=== PATIENT | female | born 1955 | race Caucasian/White ===

== ENCOUNTER 2019-05-16 12:10 | Emergency (ER) | payer OTHER ==
[2019-05-16 12:24] VITALS: TEMP 98.2; BMI 45.1
--- NOTE | 2019-05-16 13:01 | PDOC ---
History of Present Illness - General Chief Complaint: Pain Stated Complaint: BILATERAL LEG PAIN, RIGHT > LEFT Time Seen by Provider: 05/16/19 12:31 - History of Present Illness Initial Comments: The pt is a 63F w/ no reported PMH who presents for evaluation of 1 week of leg swelling. She states she had a mechanical fall last week. Since then she has continued to ambulate but has noticed swelling in her legs (that is mildly worse than usual) and is concerned she may have a blood clot in her legs. She denies history of DVT/PE, chest pain, SOB, fevers, change in sensation, or weakness. Denies recent long travel, surgery, immobility, OCP, malignancy. 05/16/19 13:01 Past History - Past Medical History Allergies/Adverse Reactions: Allergies Allergy/AdvReac Type Severity Reaction Status Date / Time Penicillins Allergy Verified 05/16/19 12:19 Home Medications: Ambulatory Orders Cyanocobalamin [Vitamin B12 -] 1,000 mcg PO ASDIR 05/16/19 COPD: No - Surgical History Cholecystectomy: Yes - Psycho Social/Smoking Cessation Hx Smoking History: Never smoked Have you smoked in the past 12 months: No Information on smoking cessation initiated: No Hx Alcohol Use: No Review of Systems - Review of Systems Able to Perform ROS?: Yes Comments:: GENERAL/CONSTITUTIONAL: No fever or chills. No weakness HEAD, EYES, EARS, NOSE AND THROAT: No change in vision. No change in hearing. No sore throat CARDIOVASCULAR: No chest pain or shortness of breath RESPIRATORY: Denies cough, hemoptysis GASTROINTESTINAL: No nausea, vomiting, diarrhea or constipation GENITOURINARY: No dysuria, frequency, or change in urination MUSCULOSKELETAL: per HPI SKIN: No rash NEUROLOGIC: No headache, vertigo, loss of consciousness, or change in strength/ sensation ENDOCRINE: No increased thirst. No abnormal weight change HEMATOLOGIC/LYMPHATIC: No anemia, easy bleeding, or history of blood clots ALLERGIC/IMMUNOLOGIC: No hives or skin allergy 05/16/19 12:48 Is the patient limited Vietnamese proficient: No *Physical Exam - Vital Signs Last Vital Signs Temp Pulse Resp BP Pulse Ox 98.2 F 80 16 169/94 95 05/16/19 12:10 05/16/19 12:10 05/16/19 12:10 05/16/19 12:10 05/16/19 12:10 - Physical Exam GENERAL: Awake, alert, and oriented to person/place/time, in no acute distress HEAD: No signs of trauma, normocephalic, atraumatic EYES: PERRLA, EOMI, sclera anicteric, conjunctiva clear ENT: Hearing grossly normal, nares patent, oropharynx clear without exudates. Moist mucosa LUNGS: No distress, speaks in full sentences, clear to auscultation bilaterally HEART: Regular rate and rhythm, normal S1 and S2, no murmurs appreciated, peripheral pulses normal and equal bilaterally ABDOMEN: Soft, nontender, normoactive bowel sounds. No guarding, no rebound EXTREMITIES: Moves all extremities independently; R lower leg anterior resolving ecchymosis; BLE edema to ankles (reported chronic) NEUROLOGICAL: Cranial nerves II through XII grossly intact. Normal speech, no focal sensorimotor deficits SKIN: ecchymosis as noted above; Warm, Dry, no cellulitis 05/16/19 12:49 Medical Decision Making - Medical Decision Making The pt is a 63F w/ no reported PMH who presents for evaluation of 1 week of leg swelling. ED Course Will obtain BLE duplex to evaluate for DVT 05/16/19 13:09 Duplex w/o evidence of DVT Plan for D/C w/ PCP f/u Discharge instructions and return precautions given Patient in agreement and verbalized understanding Dispo: Home 05/16/19 14:07 Discharge - Discharge Information Problems reviewed: Yes Clinical Impression/Diagnosis: Leg swelling Condition: Stable Disposition: HOME - Admission No - Follow up/Referral Referrals: Chely Ching MD [Primary Care Provider] - - Patient Discharge Instructions Additional Instructions: Your ultrasound was negative for blood clot in both legs. Be sure to follow up with your primary care provider within 1-2 weeks for a check up. Return to the Emergency Department if you develop fevers, chest pain, trouble breathing, worsening symptoms, or any new/concerning symptoms. - Post Discharge Activity
--- NOTE | 2019-05-16 14:06 | PDOC ---
Attending Attestation - Resident Resident Name: Alejandro Mendoza - ED Attending Attestation I have performed the following: I have examined & evaluated the patient, The case was reviewed & discussed with the resident, I agree w/resident's findings & plan - HPI HPI: 05/16/19 14:00 63-year-old female, history of obesity and borderline blood pressure elevation, not on any medications other than B12 supplements. Patient reports falling 9 days ago when tripping over [facility] [place] [employer]. She went down on her left and right shins and knees. She sustained a bruise over the anterior right doan. She comes in now complaining of swelling of both legs and concern that she might have developed a "blood clot." There is no prior history of blood clots. There is no family history of blood clots. There is a history of venous stasis disease without clots in the patient's father - Physicial Exam PE: 05/16/19 14:05 Patient is obese, but in no distress. Eyes ears nose and throat are normal. His neck is normal. Lungs are clear. Heart is regular rhythm without gallop or murmur. Abdomen is obese, soft, nontender, normal bowel sounds, no guarding or rebound. Extremities are warm and well perfused. There is 1+ mild pitting ankle edema bilaterally. There is a 10 x 20 cm ecchymotic area that appears quite old with greenish coloration over the right anterior doan below the knee. The skin is intact. There is no calf tenderness or thigh tenderness. There is no cord or erythema. There are no significant venous stasis changes. No hyperpigmentation of the ankles. Extremities are warm and well perfused. There is no erythema. - Medical Decision Making 05/16/19 14:06 Patient is 63 years old, borderline hypertension, not on medication, presents after a fall 9 days ago with concern for a blood clot in her leg. She does have some ecchymosis in the subcutaneous area of the right anterior doan. She has trace pitting edema in both ankles. She is morbidly obese. Although there is some risk for DVT, the clinical findings do not suggest a high risk for DVT. Duplex Doppler ultrasound of both legs was performed. There is no evidence for DVT in the left or the right leg. Impression: Contusion right leg, no evidence of DVT. Patient is stable for discharge. She has been advised to follow-up with her primary care physician, Dr. Ching , for a checkup and repeat blood pressure to see if she needs any medication. The patient states she will go to see Dr. Ching at [facility] in the next week.
[2019-05-16 14:07] VITALS: BP 149/82; PULSE 76
== END 2019-05-16 14:20 | disposition home or self-care (01) ==
LOC: FER 12:10
DX: M79.89 Other specified soft tissue disorders (principal); Z88.0 Allergy status to penicillin
CPT/HCPCS: 93970-TC; 99284-25